=== PATIENT | male | born 1935 | race Caucasian/White ===

== ENCOUNTER 2024-02-12 19:33 | Emergency (ER) | payer MEDICARE ==
[~2024-02-12] VITALS: Ht 177.8 cm; Wt 83.9 kg
[~2024-02-12 19:33] MED LIST: CALCIUM CHLORIDE 1 GM/10 ML DISP.SYRIN IVP ONE
[2024-02-12 19:34] VITALS: O2SAT 92
[2024-02-12] MEDS: IV NORMAL SALINE 500 ML IV ONE (20:15)
[2024-02-12] MEDS: VANCOMYCIN IV 1,000 MG in IV DEXTROSE 5% 250 ML IV ONE (20:15)
[2024-02-12] MEDS: VANCOMYCIN IV 500 MG in IV DEXTROSE 5% 100 ML IV ONE (20:15)
[2024-02-12] MEDS: CEFEPIME HCL 2 G in IV DEXTROSE 5% 100 ML IV ONE (20:15)
[2024-02-12] MEDS: IV NS 1000 ML 1,000 ML IV ONE (20:20)
[2024-02-12] MEDS ORDERED: CEFEPIME HCL 1 G VIAL ONE (20:29)
[2024-02-12] MEDS ORDERED: VANCOMYCIN IV 0 ML ONE (20:29)
[2024-02-12] MEDS ORDERED: VANCOMYCIN HCL 500 MG VIAL ONE (20:30)
[2024-02-12] MEDS ORDERED: EPINEPHRINE 1:10,000 1 MG/10 ML DISP.SYRIN ONE (20:56)
== END 2024-02-12 22:32 ==
LOC: ER 19:34
DX: J96.00 Acute respiratory failure, unspecified whether with hypoxia or hypercapnia (principal); I46.9 Cardiac arrest, cause unspecified; C22.1 Intrahepatic bile duct carcinoma; C79.9 Secondary malignant neoplasm of unspecified site; E11.9 Type 2 diabetes mellitus without complications; I95.9 Hypotension, unspecified; R53.1 Weakness
CPT/HCPCS: 31500; 31720; 71045; 92950; 93005; 96360; 99291; J0171; J0692; J3490; J7040; A4606; A4663; J3370